=== PATIENT | female | born 1990 | race Caucasian/White ===

== ENCOUNTER 2018-11-15 12:17 | Emergency (ER) | payer OTHER ==
[2018-11-15 12:23] VITALS: BP 117/74; PULSE 72; RESP 18; TEMP 97.7
--- NOTE | 2018-11-15 12:36 | ED ---
Skin/Abscess/FB HPI - General Chief complaint: Needlestick/Exposure Stated complaint: needlestick [facility] Time Seen by Provider: 11/15/18 12:25 Source: patient, RN notes reviewed Mode of arrival: ambulatory Limitations: no limitations - History of Present Illness Initial comments: 28-year-old female presents emergency Department with chief complaint of need lestick. Patient states she works for [employer] and states that they were giving 3 vaccines. Patient states she went to move her hand and states that one of the needles poked in the left palmar aspect. Patient states that there is small amount blood she did immediately wash her hands. Patient states the patient is known to them and no known medical diseases. Patient is up-to-date on vaccinations including tetanus. Patient was sent here for testing. - Related Data Allergies Allergy/AdvReac Type Severity Reaction Status Date / Time No Known Allergies Allergy Verified 11/15/18 12:22 Review of Systems ROS Statement: Those systems with pertinent positive or pertinent negative responses have been documented in the HPI. ROS Other: All systems not noted in ROS Statement are negative. Past Medical History Past Medical History: No Reported History History of Any Multi-Drug Resistant Organisms: None Reported Past Surgical History: Section Past Psychological History: No Psychological Hx Reported Smoking Status: Never smoker Past Alcohol Use History: None Reported Past Drug Use History: None Reported General Exam Limitations: no limitations General appearance: alert, in no apparent distress Head exam: Present: atraumatic, normocephalic, normal inspection Respiratory exam: Present: normal lung sounds bilaterally. Absent: respiratory distress, wheezes, rales, rhonchi, stridor Cardiovascular Exam: Present: regular rate, normal rhythm, normal heart sounds. Absent: systolic murmur, diastolic murmur, rubs, gallop, clicks Skin exam: Present: other (Left palmar aspect there is a small puncture wound noted no active bleeding) Course Vital Signs 11/15/18 12:18 Temperature 97.7 F Pulse Rate 72 Respiratory 18 Rate Blood Pressure 117/74 O2 Sat by Pulse 100 Oximetry Medical Decision Making - Medical Decision Making 28-year-old female presented for needlestick. We did discuss HIV prophylaxis. This will be declined at this time. We discussed having regular HIV and hepatitis testing at this time, repeat labs with [facility]. Disposition Clinical Impression: Needlestick injury accident Disposition: HOME SELF-CARE Condition: Stable Instructions (If sedation given, give patient instructions): Needle Stick Injuries (ED) Additional Instructions: Please return to the Emergency Department if symptoms worsen or any other concerns. Is patient prescribed a controlled substance at d/c from ED?: No Referrals: Andrea Fabian DO [Primary Care Provider] - 1-2 days Time of Disposition: 12:35
[2018-11-15 20:33] LABS: Hepatitis B Surface AB- Quant 33.8 mIU/mL; Hepatitis C IgG Antibody Non-Reactive (Non-Reactive)
[2018-11-15 21:20] LABS: HIV 1 AB Non-Reactive (Non-Reactive); HIV AB P24 Non-Reactive (Non-Reactive); HIV P24 AG Non-Reactive (Non-Reactive)
== END 2018-11-15 13:05 | disposition home or self-care (01) ==
LOC: EC 12:17
DX: S61.432A Puncture wound without foreign body of left hand, initial encounter (principal); W46.0XXA Contact with hypodermic needle, initial encounter; Y92.69 Other specified industrial and construction area as the place of occurrence of the external cause; Y99.0 Civilian activity done for income or pay
CPT/HCPCS: 36415; 86706; 86803; 87340; 87390; 99283

== ENCOUNTER 2019-08-09 16:31 | Emergency (ER) | payer OTHER ==
[2019-08-09 16:37] VITALS: BP 109/73; PULSE 86; RESP 18; TEMP 98.5
--- NOTE | 2019-08-09 17:23 | ED ---
General Adult HPI - General Chief complaint: Needlestick/Exposure Stated complaint: needle stick [facility] Time Seen by Provider: 08/09/19 16:37 Source: patient, RN notes reviewed, old records reviewed Mode of arrival: ambulatory Limitations: no limitations - History of Present Illness Initial comments: 28-year-old female patient comes to ED for chief complaint needlestick. Patient reports that this was a small follow up for needle. 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 States that she poked herself on the palmar aspect of her index finger. Denies any update her tetanus. Reports that she vigorously cleaned that after. Denies any chance of being . Systemic: Pt denies fatigue, fever/chills, rash. Pt denies weakness, night sweats, weight loss. Neuro: Pt denies headache, visual disturbances, syncope or pre-syncope. HEENT: Pt denies ocular discharge or irritation, otalgia, rhinorrhea, pharyngitis or notable lymphadenopathy. Cardiopulmonary: Pt denies chest pain, SOB, heart palpitations, dyspnea on exertion. Abdominal/GI: Pt denies abdominal pain, n/v/d. : Pt denies dysuria, burning w/ urination, frequency/urgency. Denies new onset urinary or bowel incontinence. MSK: Pt denies myalgia, loss of strength or function in extremities. Neuro: Pt denies new onset weakness, paresthesias. - Related Data Allergies Allergy/AdvReac Type Severity Reaction Status Date / Time No Known Allergies Allergy Verified 08/09/19 16:36 Review of Systems ROS Statement: Those systems with pertinent positive or pertinent negative responses have been documented in the HPI. ROS Other: All systems not noted in ROS Statement are negative. Past Medical History Past Medical History: No Reported History History of Any Multi-Drug Resistant Organisms: None Reported Past Surgical History: Section Past Psychological History: No Psychological Hx Reported Smoking Status: Never smoker Past Alcohol Use History: Rare Past Drug Use History: None Reported General Exam - General Exam Comments Initial Comments: Constitutional: NAD, AOX3, Pt has pleasant affect. HEENT: NC/AT, trachea midline, neck supple, no lymphadenopathy. Posterior pharynx non erythematous, without exudates. External ears appear normal, without discharge. Mucous membranes moist. Eyes PERRLA, EOM intact. There is no scleral icterus. No pallor noted. Cardiopulmonary: RRR, no murmurs, rubs or gallops, no JVD noted. Lungs CTAB in anterior and posterior field. No peripheral edema. Neuro: CN II-XII grossly intact. No nuchal rigidity. No raccon eyes, no tilley sign, no hemotympanum. No cervical spinal tenderness. MSK: Small puncture noted to palmar aspect of second digit of left hand proximal to the PIP. Vigorously cleaned in emergency department. No posterior calf tenderness bilaterally, homans sign negative bilaterally. Posterior tibialis and radial pulse +2 bilaterally. Sensation intact in upper and lower extremities. Full active ROM in upper and lower extremities, 5/5 stregnth. Limitations: no limitations Course Vital Signs 08/09/19 16:33 Temperature 98.5 F Pulse Rate 86 Respiratory 18 Rate Blood Pressure 109/73 O2 Sat by Pulse 100 Oximetry Medical Decision Making - Medical Decision Making 28-year-old female patient comes to ED for chief complaint needlestick. Patient reports that this was a small follow up for needle. 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 States that she poked herself on the palmar aspect of her index finger. Denies any update her tetanus. Reports that she vigorously cleaned that after. Denies any chance of being . Pt VSS, afebrile. Physical exam displayed: Small puncture noted to palmar aspect of second digit of left hand proximal to the PIP. Vigorously cleaned in emergency department. Declined tetanus and prophylaxis. Blood drawn in ED. Will follow up with PCP and return to ED if condition worsens. Case discused with Dr. Varma. Disposition Clinical Impression: Needle stick injury Disposition: HOME SELF-CARE Instructions (If sedation given, give patient instructions): Needle Stick Injuries (ED) Additional Instructions: Follow up with primary care provider tomorrow. Return to ER if condition worsens. Is patient prescribed a controlled substance at d/c from ED?: No Referrals: Andrea Fabian DO [Primary Care Provider] - 1-2 days
[2019-08-10 02:37] LABS: Hepatitis B Surface AB- Quant 40.9 mIU/mL; Hepatitis B Surface Antibody Reactive (Non-Reactive); Hepatitis C IgG Antibody Non-Reactive (Non-Reactive)
[2019-08-10 09:24] LABS: HIV 1 AB Non-Reactive (Non-Reactive); HIV 2 AB Non-Reactive (Non-Reactive); HIV AB P24 Non-Reactive (Non-Reactive); HIV P24 AG Non-Reactive (Non-Reactive)
== END 2019-08-09 17:16 | disposition home or self-care (01) ==
LOC: EC 16:31
DX: S61.231A Puncture wound without foreign body of left index finger without damage to nail, initial encounter (principal); Z77.21 Contact with and (suspected) exposure to potentially hazardous body fluids; W46.0XXA Contact with hypodermic needle, initial encounter; Y99.0 Civilian activity done for income or pay; Y92.69 Other specified industrial and construction area as the place of occurrence of the external cause
CPT/HCPCS: 36415; 86706; 86803; 87390; 99283

== ENCOUNTER → 2023-04-01 | Outpatient (CLI) | payer SELFPAY | END | disposition home or self-care (01) | LOC: LABWHC1 16:24 | PROVIDERS: ATTEND Obstetrics & Gynecology | DX: O20.0 Threatened abortion (principal) | CPT/HCPCS: 36415; 84702; 86850; 86900; 86901 ==

== ENCOUNTER → 2024-01-17 | Outpatient (CLI) | payer OTHER | END | disposition home or self-care (01) | LOC: LABPRL 12:34 | PROVIDERS: ATTEND Obstetrics & Gynecology | DX: Z36.85 Encounter for antenatal screening for Streptococcus B (principal) | CPT/HCPCS: 87081 ==

== ENCOUNTER 2024-01-31 16:44 | Outpatient (CLI) | payer OTHER ==
[2024-01-31 17:51] LABS: Amorphous Sediment,Urine Rare /hpf; Appearance,Urine Clear (Clear); Bacteria,Urine Moderate /hpf; Bilirubin,Urine Negative (Negative); Blood,Urine Small (Negative); Color,Urine Colorless; Glucose,Urine (UA) Negative (Negative); Ketones,Urine Negative (Negative); Leukocyte Esterase,Urine Negative (Negative); Nitrite,Urine Negative (Negative); PH, Urine 6.5 (5.0-8.0); Protein,Urine Negative (Negative); RBC,Urine 6 /hpf (0-5); Specific Gravity,Urine 1.004 (1.001-1.035); Squamous Epithelial Cell,Urine <1 /hpf (0-4); Urobilinogen,Urine <2.0 mg/dL (<2.0); WBC,Urine 3 /hpf (0-5)
[2024-01-31 18:32] VITALS: BP 114/69; PULSE 95; RESP 18; TEMP 98.1
--- NOTE | 2024-03-23 10:31 | P.MSEPDOC ---
Presenting Problems - Arrival Data Date of Arrival on Unit: 01/31/24 Time of Arrival on Unit: 16:44 Mode of Transport: Ambulatory - Complaint OB-Reason for Admission/Chief Complaint: Rule Out SROM Comment: rule out SROM and lower back pain throughout the day. Pt states has been leaking small amounts since this morning. clear. Medical History - Information : 2 Para: 1 Term: 1 : 0 Abortions: Spontaneous or Elective: 0 Number of Living Children: 1 - Gestational Age Gestational Age by CARLOS (wks/days): 38 Weeks and 2 Days - History Complications: Prior Review of Systems - Review of Systems Constitutional: No problems Breast: No problems ENT: No problems Cardiovascular: No problems Respiratory: No problems Gastrointestinal: No problems Genitourinary: No problems Musculoskeletal: No problems Neurological: No problems Skin: No problems Vital Signs - Temperature Temperature: 98.1 F Temperature Source: Oral - Pulse Right Pulse Oximetery Pulse Rate: 95 Pulse Assessment Method: Pulse Oximetry - Respirations Respiratory Rate: 18 Oxygen Delivery Method: Room Air O2 Sat by Pulse Oximetry: 98 - Blood Pressure Right Arm Blood Pressure: 114/69 Blood Pressure Mean: 84 Blood Pressure Source: Automatic Cuff Medical Screen Scoring - Uterine Contractions Frequency From (mins): 8 Frequency To (mins): 8 Duration From (seconds): 50 Duration To (seconds): 60 Intensity: Mild Resting: Soft to palpation - Assessment - Baby A Baseline FHR: 130 Heart Rate - NICHD Category: Category I (Normal) NST: Reactive Physician Notification - Physician Notified Physician Notified Date: 01/31/24 Physician Notified Time: 17:31 Physician: Mulu Lopez New Order Received: Yes (UA sent, cervical exam repeat after 1 hour.) Maternal Triage Index - Maternal Triage Index Presenting for scheduled procedure w/no complaint: No - Stat/Priority 1 Stat Priority 1: No - Urgent/Priority 2 Urgent Priority 2: No - Prompt/Priority 3 Prompt Priority 3: No - Non-Urgent/Priority 4 Non-Urgent Priority 4: Yes Criteria Met for Priority 4: possible SROM 38 2/7 weeks, lower back pain Disposition - Disposition OB Disposition: Discharge to home Discharge Date: 01/31/24 Discharge Time: 18:25 I agree with the RN Medical Screening Exam: No Case reviewed; plan agreed upon as documented in EMR&OBIX.: Yes Diagnosis: FALSE LABOR AT OR AFTER 37 COMPLETED WEEKS OF GESTATION
== END 2024-01-31 18:25 | disposition home or self-care (01) ==
LOC: FBPOP 16:44
PROVIDERS: ATTEND Obstetrics & Gynecology
CPT/HCPCS: 59025; 81001; 84112; 99213

== ENCOUNTER 2024-02-14 06:05 | Inpatient (IN) | payer OTHER ==
[2024-02-14] MEDS ORDERED: OXYTOCIN 10 UNIT/ML 1 ML VIAL IM PRN ×2 (06:23→20:24)
[2024-02-14] MEDS ORDERED: METHYLERGONOVINE 0.2 MG/ML 1 ML AMP IM PRN ×2 (06:23→20:24)
[2024-02-14] MEDS ORDERED: LIDOCAINE 0.5% (PF) 5 MG/ML (50 ML SDV) SQ PRN (06:23)
[2024-02-14] MEDS ORDERED: miSOPROStoL 200 MCG TAB RECTAL PRN (06:23)
[2024-02-14] MEDS ORDERED: TERBUTALINE 1 MG/ML VIAL SQ PRN (06:23)
[2024-02-14] MEDS ORDERED: CARBOPROST TROMETHAMINE 250 MCG/ML 1 ML AMP IM PRN ×2 (06:23→20:24)
[2024-02-14] MEDS ORDERED: TRANEXAMIC 1,000 MG/100ML-NACL 1,000 MG in EMPTY BAG 1 BAG IV PRN ×2 (06:23→20:24)
[2024-02-14] MEDS ORDERED: miSOPROStoL 200 MCG TAB PO PRN ×2 (06:23→20:24)
[2024-02-14] MEDS: LACTATED RINGERS 1,000 ML IV SCH ×2 (06:25→22:59)
[2024-02-14] MEDS: OXYTOCIN 30 UNITS/500 ML NS 30 UNIT in SALINE 1 500ML.BAG IV SCH (06:45)
[2024-02-14 06:48] LABS: Basophils % (A) 0 %; Eosinophils # (A) 0.1 k/uL (0-0.7); Eosinophils % (A) 1 %; HCT 39.9 % (34.0-46.0); HGB 13.7 gm/dL (11.4-16.0); Lymphocytes # (A) 1.3 k/uL (1.0-4.8); Lymphocytes % (A) 16 %; MCH 30.8 pg (25.0-35.0); MCHC 34.2 g/dL (31.0-37.0); MCV 89.9 fL (80.0-100.0); Mean Platelet Volume 10.9; Monocytes # (A) 0.6 k/uL (0-1.0); Monocytes % (A) 7 %; Neutrophils # (A) 6.3 k/uL (1.3-7.7); Neutrophils % (A) 74 %; Platelet Count 170 k/uL (150-450); RBC 4.44 m/uL (3.80-5.40); RDW 14.2 % (11.5-15.5); WBC 8.5 k/uL (3.8-10.6)
[2024-02-14] MEDS ORDERED: NALBUPHINE 10 MG/ML (10 ML MDV) IV PRN (08:37)
--- NOTE | 2024-02-14 08:37 | P.HPOB ---
History of Present Illness H&P Date: 02/14/24 Chief Complaint: 40-2/7 weeks, previous section, induction The patient is a 33-year-old 2 para 1-0-0-1 admitted at 40-2/7 weeks as established by last menstrual period and confirmed by 6-week ultrasound. She is admitted for postdates induction of labor with all signs reassuring, category 1 heart rate tracing. She has a history of previous section and has requested vaginal trial of labor understanding the risks and complications. Her has otherwise been entirely uncomplicated and group B strep status is negative. Obstetrical history: 2 para 1-0-0-1 with 1 term section. Current statistics are listed in the history of present illness. EDC of 02/12/2024 was established by last menstrual period and confirmed by 6-week ultrasound. Laboratory workup demonstrates a blood type of O+ with a negative a ntibody screen. Rubella status is immune. The remainder of the laboratory workup was within normal limits. 1 hour Glucola was normal and group B strep status is negative. Gynecologic history: Unremarkable with no history of any infections to include STDs. Review of Systems Review of systems is confined to history of present illness. Past Medical History Past Medical History: No Reported History History of Any Multi-Drug Resistant Organisms: None Reported Past Surgical History: Section Past Anesthesia/Blood Transfusion Reactions: No Reported Reaction Past Psychological History: No Psychological Hx Reported Smoking Status: Never smoker Past Alcohol Use History: Rare Past Drug Use History: None Reported - Past Family History Mother Family Medical History: Hypertension Medications and Allergies Home Medications Medication Instructions Recorded Confirmed Type Aspirin [Adult Low Dose Aspirin EC] 81 mg PO DAILY 01/31/24 02/14/24 History Cetirizine HCl [Zyrtec] 10 mg PO DAILY 01/31/24 02/14/24 History Doxylamine Succinate [Unisom] 25 mg PO DAILY 01/31/24 02/14/24 History Famotidine [Pepcid] 10 mg PO DAILY 01/31/24 02/14/24 History Vit No.179/Iron/Folic 1 each PO DAILY 01/31/24 02/14/24 History [ Tablet] Allergies Allergy/AdvReac Type Severity Reaction Status Date / Time No Known Allergies Allergy Verified 02/14/24 06:21 Exam Vital Signs Temp Pulse Resp BP Pulse Ox 02/14/24 06:21 97.7 F 97 17 130/68 97 Intake and Output 02/13/24 02/14/24 02/14/24 22:59 06:59 14:59 Other: Weight 88.451 kg General, this is a well-developed, well-nourished white female in no acute distress. Her heart has a regular rhythm and rate without murmur. Her lungs are clear to auscultation bilaterally in all field. Her abdomen is gravid, nondistended, has normal active bowel sounds, soft, nontender, and without any palpable masses aside from the uterine fundus. Her extremities are without any cyanosis, clubbing, or significant edema and are nontender to palpation bilaterally. Digital cervical examination demonstrates her cervix to be 1 cm dilated, approximately 40% effaced, with a vertex presentation at -3 station and floating. As a result, artificial rupture of membranes is not carried out. Results Result Diagrams: 02/14/24 06:25 Assessment and Plan (1) Post-dates Current Visit: Yes Status: Acute Code(s): O48.0 - POST-TERM SNOMED Code(s): 43604978 (2) Previous section Current Visit: Yes Status: Acute Code(s): Z98.891 - HISTORY OF UTERINE SCAR FROM PREVIOUS SURGERY SNOMED Code(s): 473751736 Plan: The patient has been admitted for induction of labor. Pitocin augmentation has been started. We will let her labor down to some extent to make artificial rupture of membranes safer. She will continue to have close maternal and surveillance and expectant management will be practiced. She is a good candidate for either IV or epidural analgesia, which ever she may choose.
[2024-02-14] MEDS: CITRIC ACID-SODIUM CITRATE 15 ML CUP PO ONE (21:11)
[2024-02-14] MEDS ORDERED: ONDANSETRON 4 MG/2 ML VIAL ONE (21:38)
[2024-02-14] MEDS ORDERED: KETOROLAC 15 MG/ML 1 ML VIAL ONE (21:38)
[2024-02-14] MEDS ORDERED: PHENYLEPHRINE-0.9% NACL SYG 1,000 MCG/10 ML SYRINGE ONE (21:38)
[2024-02-14] MEDS ORDERED: MORPHINE SULFATE (PF) 0.3 MG/0.3 ML SYR ONE (21:38)
[2024-02-14] MEDS ORDERED: diphenhydrAMINE 25 MG CAP PO PRN (22:28)
[2024-02-14] MEDS ORDERED: SIMETHICONE 80 MG CHEWABLE PO PRN (22:28)
[2024-02-14] MEDS ORDERED: ZOLPIDEM 5 MG TAB PO PRN (22:28)
[2024-02-14] MEDS ORDERED: NALOXONE 0.4 MG/ML 1 ML VIAL IV PRN ×2 (22:28→23:16)
[2024-02-14] MEDS ORDERED: LANOLIN CREAM 1 GM TUBE TOPICAL PRN (22:28)
[2024-02-14] MEDS ORDERED: diphenhydrAMINE 50 MG/ML 1 ML VIAL IVP PRN (22:28)
[2024-02-14] MEDS ORDERED: OXYTOCIN 30 UNITS/500 ML NS 30 UNIT in SALINE 1 500ML.BAG IV SCH (22:30)
--- NOTE | 2024-02-14 22:36 | P.OP ---
Date of Procedure: 02/14/24 Preoperative Diagnosis: #1. 40-2/7 weeks, previous section, requesting vaginal trial of labor #2. Elective repeat low-transverse section Postoperative Diagnosis: Same Procedure(s) Performed: #1. Elective repeat low-transverse section Anesthesia: spinal Surgeon: Shahram Helton Canine Service Teacher #1: Ebony Aguilar Estimated Blood Loss (ml): 347 IV fluids (ml): 1,000 Urine output (ml): 200 Pathology: none sent Condition: stable Disposition: floor Operative Findings: Preoperatively, the patient had undergone induction of labor and had spontaneous rupture of membranes for clear fluid. She made minimal progress throughout the day progressing from perhaps 1 to approximately 2 cm of dilation with 50% effacement on the vertex never descended below -2 station. Underwent patient ce ntered medical conference regarding the ongoing findings and the discussion was undertaken with the patient that she had not yet met criteria for failed induction. She nevertheless requested to proceed with repeat low-transverse section. She was taken to the operating room where she was delivered of a viable 9 pound 7 ounce baby boy with Apgars of 9 at 1 minute and 9 at 5 minutes in the occiput transverse position. The placenta was delivered manually, intact, and grossly normal with a grossly normal three-vessel cord. The uterus, tubes, and ovaries were entirely normal to inspection. The amount of scarring noted was appropriate for 1 previous section. Description of Procedure: The patient was prepped and draped in usual fashion after spinal anesthesia was administered by the anesthesiologist. A Pfannenstiel incision was made through pre-existing scar and extended into the abdominal cavity without difficulty. The bladder peritoneum was significantly distal to the intended site of incision and was left intact. A 2 cm incision was made in the transverse plane of the lower uterine segment to enter the uterus at which time clear fluid was again noted. The incision was extended in both directions using the bandage scissors. The head was delivered up and through the incision where the nose and mouth were thoroughly suctioned. The remainder of the infant was delivered onto the field where the cord was doubly clamped, cut, and the passed resuscitative measures with weight and Apgars as noted above. The placenta was delivered manually and intact as noted above. Uterus was exteriorized and the anterior cavity of the uterus swept of any remaining placental or membranous fragments. The margins of the uterine incision were grasped with Escamilla clamps and the incision closed in 2 layers. The first layer was a running locking stitch of 0 chromic catgut followed by a running imbricating stitch of 0 chromic catgut, each from margin to margin. There was 1 area of bleeding near the right angle of the incision which was made hemostatic with a further single [id number] stitch of 0 chromic catgut. The posterior cul-de-sac was suctioned using a guard followed by laparotomy sponge. The findings were of a normal uterus tubes and ovaries as noted above. The uterus was replaced within the abdominal cavity and the gutters swept of any remaining blood, fluid, or clot. The incision was reexamined and found to be hemostatic. The parietal peritoneum was loosely reapproximated and the layer of muscles made hemostatic with the Bovie. The fascia was closed with a single running stitch of 0 Vicryl proceeding from margin to margin. The subcutaneous tissues were irrigated, made hemostatic with the Bovie, and reapproximated with a running stitch of 3-0 plain catgut. The skin was reapproximated with a running subcuticular stitch of 4-0 Vicryl followed by half-inch Steri-Strips placed with Mastisol. Quantitative blood loss for the case was 347 mL. There were no complications. All sponge, instrument, and needle counts were correct. The patient tolerated the procedure well and proceeded to the recovery room in stable condition. Both mother and infant are resting comfortably in recovery.
[2024-02-15] MEDS: diphenhydrAMINE 50 MG/ML 1 ML VIAL IVP PRN (02:32)
[2024-02-15] MEDS: METOCLOPRAMIDE 5 MG/ML 2 ML VIAL IVP PRN (02:32)
[2024-02-15] MEDS: ACETAMINOPHEN TAB 500 MG TAB PO SCH (04:17)
[2024-02-15] MEDS: ONDANSETRON 4 MG/2 ML VIAL IVP PRN (04:17)
[2024-02-15] MEDS: IBUPROFEN 600 MG TAB PO SCH (05:48)
[2024-02-15 05:59] LABS: Basophils % (A) 0 %; Eosinophils % (A) 0 %; HCT 38.3 % (34.0-46.0); HGB 13.2 gm/dL (11.4-16.0); Lymphocytes # (A) 0.8 k/uL (1.0-4.8); Lymphocytes % (A) 4 %; MCHC 34.4 g/dL (31.0-37.0); MCV 90.1 fL (80.0-100.0); Mean Platelet Volume 10.7; Monocytes # (A) 0.5 k/uL (0-1.0); Monocytes % (A) 3 %; Neutrophils # (A) 15.8 k/uL (1.3-7.7); Neutrophils % (A) 92 %; Platelet Count 157 k/uL (150-450); RBC 4.25 m/uL (3.80-5.40); RDW 14.5 % (11.5-15.5); WBC 17.2 k/uL (3.8-10.6)
[2024-02-15] MEDS: KETOROLAC 15 MG/ML 1 ML VIAL IVP PRN (06:10)
--- NOTE | 2024-02-15 08:41 | P.PNOBGPC ---
Subjective - Subjective Patient reports: Reports appetite normal, Reports voiding normally, Reports pain well controlled, Reports ambulating normally : doing well Objective - Vital Signs Latest vital signs: Vital Signs Temp Pulse Resp BP Pulse Ox 02/15/24 06:14 97.8 F 96 16 103/66 96 02/15/24 04:00 98.0 F 98 15 123/77 98 02/15/24 01:39 16 02/15/24 00:32 97.7 F 82 16 109/62 100 02/15/24 00:17 82 16 105/58 100 02/15/24 00:16 96 16 100 02/15/24 00:02 88 16 100/58 100 02/14/24 23:47 98 16 98/53 100 02/14/24 23:32 99 16 93/50 02/14/24 23:17 100 16 87/53 96 02/14/24 23:16 16 96 02/14/24 23:02 87 16 85/46 94 L 02/14/24 22:47 91 16 88/51 94 L 02/14/24 22:32 96.5 F L 89 16 106/56 94 L Intake and Output 02/14/24 02/15/24 02/15/24 22:59 06:59 14:59 Intake Total 197.4 Output Total 397 1250 Balance -199.6 -1250 Intake: Intake, IV Titration 197.4 Amount Oxytocin 30 Units/500 ml 197.4 Ns 30 unit In Saline 1 500ml.bag @ Per Protocol IV .Q0M [facility] Rx#:[id number] Output: Urine 1100 Uretheral (Christensen) 500 Emesis 50 50 Estimated Blood Loss 50 Output, Quantitative 347 50 Blood Loss - Exam Extremities: Present: normal Abdomen: Present: normal appearance, soft. Absent: distention, tenderness Incision: Present: normal, dry, intact Uterus: Present: normal, firm (The uterine fundus is tonic and minimally tender below the umbilicus.) - Labs Labs: Abnormal Lab Results - Last 24 Hours (Table) 02/15/24 Range/Units 05:34 WBC 17.2 H (3.8-10.6) k/uL Neutrophils # 15.8 H (1.3-7.7) k/uL Lymphocytes # 0.8 L (1.0-4.8) k/uL Assessment and Plan (1) Post-dates Current Visit: Yes Status: Acute Code(s): O48.0 - POST-TERM SNOMED Code(s): 55862417 (2) Previous section Current Visit: Yes Status: Acute Code(s): Z98.891 - HISTORY OF UTERINE SCAR FROM PREVIOUS SURGERY SNOMED Code(s): 178986217 (3) S/P section Current Visit: Yes Status: Acute Code(s): Z98.891 - HISTORY OF UTERINE SCAR FROM PREVIOUS SURGERY SNOMED Code(s): 337116216 Plan: Continue routine postoperative care. I have encouraged the patient ambulate in the hallways routinely. I would anticipate discharge home tomorrow pending no complications.
[2024-02-15] MEDS: SENNOSIDES-DOCUSATE SODIUM 1 EACH TAB PO SCH (08:47)
--- NOTE | 2024-02-15 11:15 | P.PN ---
Progress Note - Text Progress Note Date: 02/15/24 Postoperative day 1 status post section under spinal anesthesia, and intrathecal morphine given for postoperative analgesia, patient doing well, there is no anesthesia related complications, Patient had no headache, vital signs stable , Assessment and plan= postop day 1 status post , doing well there is no anesthesia related complication.
[2024-02-15] MEDS: diphenhydrAMINE 50 MG CAP PO PRN (14:15)
--- NOTE | 2024-02-16 07:11 | P.DS ---
Providers Date of admission: 02/14/24 06:05 Expected date of discharge: 02/16/24 Attending physician: Shahram Helton Primary care physician: Stated None - Discharge Diagnosis(es) (1) Post-dates Current Visit: Yes Status: Acute (2) Previous section Current Visit: Yes Status: Acute (3) S/P section Current Visit: Yes Status: Acute Hospital Course: The patient is a 33-year-old 2 para 1-0-0-1 admitted at 40-2/7 weeks by good dating parameters. She is admitted for postdates induction of labor with all signs reassuring. She does have a history of a previous section and requested vaginal trial of labor. Her was otherwise uncomplicated and group B strep status is negative. On labor and delivery, she had Pitocin augmentation started. Initial attempts to rupture membranes were unsuccessful as the station was quite high. She however had spontaneous rupture of membranes shortly thereafter. She made minimal progress throughout the entire day and evening with her cervix changing from perhaps 1 cm to perhaps 2 cm of dilation. She was thought to have a fairly large baby and she ultimately opted to abandon induction of labor in favor of repeat low-transverse section. She was taken to the operating room where repeat section was carried out in an uncomplicated fashion. She was delivered of a viable 9 pound 7 ounce baby boy with Apgars of 9 at 1 minute and 9 at 5 minutes. Her and postoperative courses have been unremarkable with vital signs remaining stable and her temperature was afebrile throughout. She was deemed stable for discharge on and postoperative day #2. She was discharged home to follow-up in the office in 2 weeks for an incision check in 6 weeks routinely. Discharge instructions included calling for any significantly increased bleeding or foul-smelling lochia, significantly increased fever abdominal pain, perineal complaints, breast complaints, incisional complaints, or anything else that concerned her. She was additionally instructed to have nothing in the vagina for at least 6 weeks time to include intercourse and to abstain from any heavy lifting over the same period of time. She was lastly instructed to do no driving until off of all pain medications or 2 weeks time, whichever came first. She understood all of her instructions and agrees to follow-up as noted above. Discharge medications included continued vitamins as she has opted to breast-feed as well as [id number] analgesic pain medications. She was provided with a prescription for oxycodone, 5 mg, 1-2 p.o. every 6 hours as needed pain, #20 dispensed with no refills. Maternal blood type is O+ and rubella status is immune. Discharge hemoglobin and hematocrit were 13.2 and 38.3 respectively. Procedures: #1. Pitocin induction #2. Repeat low-transverse section Patient Condition at Discharge: Stable Plan - Discharge Summary New Discharge Prescriptions: No Action Vit No.179/Iron/Folic [ Tablet] 1 each PO DAILY Aspirin [Adult Low Dose Aspirin EC] 81 mg PO DAILY Famotidine [Pepcid] 10 mg PO DAILY Doxylamine Succinate [Unisom] 25 mg PO DAILY Cetirizine HCl [Zyrtec] 10 mg PO DAILY Discharge Medication List Aspirin [Adult Low Dose Aspirin EC] 81 mg PO DAILY 01/31/24 [History] Cetirizine HCl [Zyrtec] 10 mg PO DAILY 01/31/24 [History] Doxylamine Succinate [Unisom] 25 mg PO DAILY 01/31/24 [History] Famotidine [Pepcid] 10 mg PO DAILY 01/31/24 [History] Vit No.179/Iron/Folic [ Tablet] 1 each PO DAILY 01/31/24 [History] Follow up Appointment(s)/Referral(s): Shahram Helton MD [STAFF PHYSICIAN] - 2 Weeks (Post C/S appointment at 2:45pm) Discharge Disposition: HOME SELF-CARE
[2024-02-16 13:25] VITALS: BP 109/68; PULSE 84; RESP 16; TEMP 99.1
== END 2024-02-16 13:50 | disposition home or self-care (01) | DRG 788 ==
LOC: 4FBP 06:05
PROVIDERS: ADMIT Obstetrics & Gynecology; ATTEND Obstetrics & Gynecology
PROC: 3E033VJ Introduction of Other Hormone into Peripheral Vein, Percutaneous Approach (ICD-10-PCS; 2024-02-14)
PROC: 10D00Z1 Extraction of Products of Conception, Low, Open Approach (ICD-10-PCS; principal; 2024-02-15)
DX: O34.211 Maternal care for low transverse scar from previous cesarean delivery (principal); O32.8XX0 Maternal care for other malpresentation of fetus, not applicable or unspecified; O48.0 Post-term pregnancy; Z37.0 Single live birth; Z3A.40 40 weeks gestation of pregnancy; Z79.82 Long term (current) use of aspirin; Z79.899 Other long term (current) drug therapy

== ENCOUNTER 2024-09-12 20:08 | Emergency (ER) | payer OTHER ==
[2024-09-12 20:18] VITALS: RESP 16
--- NOTE | 2024-09-12 20:37 | ED ---
Wound/Laceration HPI - General Chief Complaint: Wound/Laceration Stated Complaint: L Finger Laceration Time Seen by Provider: 09/12/24 20:23 Source: patient, RN notes reviewed Mode of arrival: ambulatory Limitations: no limitations - History of Present Illness Onset/Timin -: hour(s) Time: 19:30 Place: home Patient Tetanus UTD: No (Unsure) Context: accidental Associated Symptoms: none - Related Data Home Medications Medication Instructions Recorded Confirmed Aspirin [Adult Low Dose Aspirin EC] 81 mg PO DAILY 01/31/24 02/14/24 Cetirizine HCl [Zyrtec] 10 mg PO DAILY 01/31/24 02/14/24 Doxylamine Succinate [Unisom] 25 mg PO DAILY 01/31/24 02/14/24 Famotidine [Pepcid] 10 mg PO DAILY 01/31/24 02/14/24 Vit No.179/Iron/Folic 1 each PO DAILY 01/31/24 02/14/24 [ Tablet] Allergies Allergy/AdvReac Type Severity Reaction Status Date / Time No Known Allergies Allergy Verified 02/14/24 06:21 Review of Systems ROS Statement: Those systems with pertinent positive or pertinent negative responses have been documented in the HPI. ROS Other: All systems not noted in ROS Statement are negative. Past Medical History Past Medical History: No Reported History History of Any Multi-Drug Resistant Organisms: None Reported Past Surgical History: Section Past Anesthesia/Blood Transfusion Reactions: No Reported Reaction Past Psychological History: No Psychological Hx Reported Smoking Status: Never smoker Past Alcohol Use History: Rare Past Drug Use History: None Reported - Past Family History Mother Family Medical History: Hypertension General Exam Limitations: no limitations General appearance: alert, in no apparent distress Head exam: Present: atraumatic, normocephalic, normal inspection Eye exam: Present: normal appearance, PERRL, EOMI. Absent: scleral icterus, conjunctival injection, periorbital swelling ENT exam: Present: normal exam, mucous membranes moist Neck exam: Present: normal inspection. Absent: tenderness, meningismus, lymphadenopathy Respiratory exam: Present: normal lung sounds bilaterally. Absent: respiratory distress, wheezes, rales, rhonchi, stridor Cardiovascular Exam: Present: regular rate, normal rhythm, normal heart sounds. Absent: systolic murmur, diastolic murmur, rubs, gallop, clicks GI/Abdominal exam: Present: soft, normal bowel sounds. Absent: distended, tenderness, guarding, rebound, rigid Extremities exam: Present: full ROM, normal capillary refill, other (1 cm shallow horizontal laceration radial aspect of left index finger adjacent to neetu l without active bleeding, foreign body, surrounding erythema). Absent: tenderness, pedal edema, joint swelling, calf tenderness Back exam: Present: normal inspection Neurological exam: Present: alert, oriented X3, CN II-XII intact Psychiatric exam: Present: normal affect, normal mood Skin exam: Present: warm, dry, intact, normal color. Absent: rash Course Vital Signs 09/12/24 20:14 Temperature 98.7 F Pulse Rate 77 Respiratory 16 Rate Blood Pressure 106/71 O2 Sat by Pulse 98 Oximetry Medical Decision Making - Medical Decision Making Was pt. sent in by a medical professional or institution (KATHIE Alex, TYPE INSPECTOR, urgent care, hospital, or [place] [facility] facility...) When possible be specific @ -[No] Did you speak to anyone other than the patient for history (EMS, parent, family, police, friend...)? What history was obtained from this source @ -[No] Did you review nursing and triage notes (agree or disagree)? Why? @ -[I reviewed and agree with nursing and triage notes] Were old charts reviewed (outside hosp., previous admission, EMS record, old EKG, old radiological studies, urgent care reports/EKG's, [place] [facility] records)? Report findings @ -[No old charts were reviewed] Differential Diagnosis (chest pain, altered mental status, abdominal pain women, abdominal pain men, vaginal bleeding, weakness, fever, dyspnea, syncope, headache, dizziness, GI bleed, back pain, seizure, CVA, palpatations, mental health, musculoskeletal)? @ -Differential Musculoskeletal Muscular strain, contusion, ligament sprain, fracture, arthritis, septic arthritis, bursitis, cellulitis, muscle spasm, nerve compression, DVT, arterial occlusion, herpes zoster, electrolyte abnormality, tumor.... This is not meant to be in all inclusive list EKG interpreted by me (3pts min.). @ -Not done X-rays interpreted by me (1pt min.). @ -[None done] CT interpreted by me (1pt min.). @ -[None done] U/S interpreted by me (1pt. min.). @ -[None done] What testing was considered but not performed or refused? (CT, X-rays, U/S, labs)? Why? @ -[None] What meds were considered but not given or refused? Why? @ -[None] Did you discuss the management of the patient with other professionals (professionals i.e. , PA, TYPE INSPECTOR, lab, RT, psych nurse, social science professor, fashion supervisor, teacher, patrol community service officer, transplant case manager)? Give summary @ -[No] Was smoking cessation discussed for >3mins.? @ -[No] Was critical care preformed (if so, how long)? @ -[No] Were there social determinants of health that impacted care today? How? (Homelessness, low income, unemployed, alcoholism, drug addiction, transportation, low edu. Level, literacy, decrease access to med. care, [facility], rehab)? @ -[No] Was there de-escalation of care discussed even if they declined (Discuss DNR or withdrawal of care, Hospice)? DNR status @ -[No] What co-morbidities impacted this encounter? (DM, HTN, Smoking, COPD, CAD, Cancer, CVA, ARF, Chemo, Hep., AIDS, mental health diagnosis, sleep apnea, morbid obesity)? @ -[None] Was patient admitted / discharged? Hospital course, mention meds given and route, prescriptions, significant lab abnormalities, going to OR and other pertinent info. @ -[hospital course] Undiagnosed new problem with uncertain prognosis? @ -[No] Drug Therapy requiring intensive monitoring for toxicity (Heparin, Nitro, Insulin, Cardizem)? @ -[No] Were any procedures done? @ -[No] Diagnosis/symptom? @ -[default] Acute, or Chronic, or Acute on Chronic? @ -Acute Uncomplicated (without systemic symptoms) or Complicated (systemic symptoms)? @ -Uncomplicated Side effects of treatment? @ -[No] Exacerbation, Progression, or Severe Exacerbation? @ -[No] Poses a threat to life or bodily function? How? (Chest pain, [place], CA, pneumonia, PE, COPD, DKA, ARF, appy, cholecystitis, CVA, Diverticulitis, Homicidal, Suicidal, threat to staff... and all critical care pts) @ -[No] Disposition Clinical Impression: Laceration Disposition: HOME SELF-CARE Condition: Good Instructions (If sedation given, give patient instructions): Skin Adhesive Care (ED), Acute Wounds (ED) Additional Instructions: Allow adhesive to remain in place for least 1 week prior to removal. Is patient prescribed a controlled substance at d/c from ED?: No Referrals: Reynold Pinto DO [Primary Care Provider] - 1-2 days
[2024-09-12] MEDS: DIPH,PERTUS(ACELL)TETVAC-LF 0.5 ML VIAL IM ONE (20:39)
[2024-09-12] MEDS: TOPICAL SKIN ADHESIVE 1 EACH AMP TOPICAL ONE (20:41)
[2024-09-12 21:20] VITALS: BP 111/78; PULSE 78; TEMP 97.9
== END 2024-09-12 21:20 | disposition home or self-care (01) ==
LOC: EC 20:08
DX: S61.211A Laceration without foreign body of left index finger without damage to nail, initial encounter (principal); Z23 Encounter for immunization; X58.XXXA Exposure to other specified factors, initial encounter; Y92.009 Unspecified place in unspecified non-institutional (private) residence as the place of occurrence of the external cause
CPT/HCPCS: 90471; 90715; 99282